=== PATIENT | female | born 1950 | race Caucasian/White ===

== ENCOUNTER 2020-07-17 16:07 | Outpatient (REF) | payer MEDICARE, SELFPAY ==
[2020-07-17 16:33] LABS: MANUAL DIFF FLAG NO
[2020-07-17 16:39] LABS: Basophils Absolute Auto 0.1 X10*3/uL (0.0-0.2); Basophils Percent Auto 0.9 % (0-2); Eosinophils Absolute Auto 0.7 X10*3/uL (0.0-0.4); Eosinophils Percent Auto 8.4 % (0-4); Hematocrit 39.7 % (37-47); Hemoglobin 12.8 g/dl (12.0-16.0); Imm Gran Abs Auto 0.04 X10*3/uL (0.00-0.03); Imm Gran Pct Auto 0.5 % (0.0-0.4); Lymphocytes Absolute Auto 2.3 X10*3/uL (1.2-4.9); Lymphocytes Percent Auto 28.7 % (20-40); Mean Corpuscular HGB Conc 32.2 g/dl (31.0-35.0); Mean Corpuscular Hemoglobin 29.3 pg (27.0-33.0); Mean Corpuscular Volume 90.8 fL (80-98); Mean Platelet Volume 9.5 fL (9.4-12.3); Monocytes Absolute Auto 0.6 X10*3/uL (0.1-1.2); Monocytes Percent Auto 7.2 % (2-11); Neutrophils Absolute Auto 4.3 X10*3/uL (2.0-8.3); Neutrophils Percent Auto 54.3 % (45-73); Platelet Count 292 X10*3/uL (160-400); Red Blood Count 4.37 X10*6/uL (4.20-5.50); Red Cell Distribution Width 13.1 % (11.0-16.0); White Blood Count 7.9 X10*3/uL (4.8-10.8)
[2020-07-17 16:56] LABS: Alanine Aminotransferase 26 U/L (0-31); Albumin Level 4.1 g/dL (3.5-5.0); Alkaline Phosphatase 67 U/L (39-117); Anion Gap 13 (12-20); Aspartate Amino Transferase 33 U/L (5-31); Bilirubin Total 0.3 mg/dL (0.0-1.0); Blood Urea Nitrogen 11 mg/dL (9-16); Calcium 9.1 mg/dL (8.4-10.2); Carbon Dioxide 27 mmol/L (22-29); Chloride 105 mmol/L (96-108); Estimated Glomerular Filt Rate > 60; Glucose Random 117 mg/dL (60-115); Potassium 4.7 mmol/L (3.3-5.1); Sodium 140 mmol/L (135-145); Total Protein 6.2 g/dL (6.5-8.0)
== END 2020-07-17 16:08 | disposition home or self-care (01) ==
LOC: HO.LAB 16:07
PROVIDERS: PCP Internal Medicine; Visit Provider Internal Medicine
DX: I10 Essential (primary) hypertension (principal); I25.10 Atherosclerotic heart disease of native coronary artery without angina pectoris; E78.00 Pure hypercholesterolemia, unspecified
CPT/HCPCS: 36415; 80053; 85025

== ENCOUNTER → 2020-10-17 13:04 | Outpatient (BNVA) | payer MEDICARE, SELFPAY | PROVIDERS: PCP Internal Medicine; Referring Provider Internal Medicine; Visit Provider Surgery | DX: K64.5 Perianal venous thrombosis (principal) | CPT/HCPCS: 46600; 99202 ==

== ENCOUNTER 2020-11-11 10:43 | Outpatient (REF) | payer MEDICARE, SELFPAY ==
[2020-11-11 11:58] LABS: Alanine Aminotransferase 27 U/L (0-31); Albumin Level 4.2 g/dL (3.5-5.0); Alkaline Phosphatase 67 U/L (39-117); Aspartate Amino Transferase 31 U/L (5-31); Bilirubin Direct 0.2 mg/dL (0.0-0.5); Bilirubin Total 0.6 mg/dL (0.0-1.0); Cholesterol 154 mg/dL; HDL Cholesterol 71 mg/dL; LDL Cholesterol Calculated 60 mg/dl; Magnesium 2.4 mg/dL (1.6-2.6); Total Protein 6.4 g/dL (6.5-8.0); Triglycerides 116 mg/dL
[2020-11-11 12:06] LABS: Thyroid Stimulating Hormone 0.26 uIU/mL (0.32-4.0)
== END 2020-11-11 10:44 | disposition home or self-care (01) ==
LOC: HO.LAB 10:43
PROVIDERS: PCP Internal Medicine; Visit Provider Internal Medicine Cardiovascular Disease
DX: E78.2 Mixed hyperlipidemia (principal); I10 Essential (primary) hypertension
CPT/HCPCS: 36415; 80061; 80076; 83735; 84443

== ENCOUNTER 2021-06-27 10:11 | Outpatient (REF) | payer MEDICARE, SELFPAY ==
[2021-06-27 10:33] LABS: MANUAL DIFF FLAG NO
[2021-06-27 11:50] LABS: Basophils Absolute Auto 0.1 X10*3/uL (0.0-0.2); Basophils Percent Auto 1.1 % (0-2); Eosinophils Absolute Auto 0.9 X10*3/uL (0.0-0.4); Eosinophils Percent Auto 13.7 % (0-4); Hematocrit 40.9 % (37.0-47.0); Hemoglobin 13.2 g/dl (12.0-16.0); Imm Gran Abs Auto 0.01 X10*3/uL (0.00-0.03); Imm Gran Pct Auto 0.2 % (0.0-0.4); Lymphocytes Absolute Auto 1.8 X10*3/uL (1.2-4.9); Mean Corpuscular HGB Conc 32.3 g/dl (31.0-35.0); Mean Corpuscular Hemoglobin 28.8 pg (27.0-33.0); Mean Corpuscular Volume 89.3 fL (80.0-98.0); Mean Platelet Volume 9.8 fL (9.4-12.3); Monocytes Absolute Auto 0.6 X10*3/uL (0.1-1.2); Monocytes Percent Auto 9.1 % (2-11); Neutrophils Absolute Auto 3.1 x10*3/uL (2.0-8.3); Neutrophils Percent Auto 47.9 % (45-73); Platelet Count 331 X10*3/uL (160-400); Red Blood Count 4.58 X10*6/uL (4.20-5.50); Red Cell Distribution Width 13.3 % (11.0-16.0); White Blood Count 6.6 X10*3/uL (4.8-10.8)
[2021-06-27 12:26] LABS: Estimated Average Glucose 108 mg/dL; Hemoglobin A1c % 5.4 %
[2021-06-27 12:33] LABS: Free T4 (Free Thyroxine) 0.85 ng/dL (0.71-1.85); Thyroid Stimulating Hormone 0.56 uIU/mL (0.32-4.0)
[2021-06-27 12:41] LABS: Alanine Aminotransferase 19 U/L (0-31); Albumin Level 3.9 g/dL (3.5-5.0); Alkaline Phosphatase 52 U/L (39-117); Anion Gap 15 (12-20); Aspartate Amino Transferase 35 U/L (5-31); Bilirubin Total 0.4 mg/dL (0.0-1.0); Blood Urea Nitrogen 14 mg/dL (9-16); Calcium 9.5 mg/dL (8.4-10.2); Carbon Dioxide 25 mmol/L (22-29); Chloride 105 mmol/L (96-108); Estimated Glomerular Filt Rate > 60; Glucose Random 102 mg/dL (60-115); Sodium 140 mmol/L (135-145); Total Protein 6.2 g/dL (6.5-8.0)
== END 2021-06-27 10:12 | disposition home or self-care (01) ==
LOC: HO.LAB 10:11
PROVIDERS: PCP Internal Medicine; Visit Provider Internal Medicine
DX: I25.10 Atherosclerotic heart disease of native coronary artery without angina pectoris (principal); I10 Essential (primary) hypertension; R73.03 Prediabetes; R94.6 Abnormal results of thyroid function studies
CPT/HCPCS: 36415; 80053; 83036; 84439; 84443; 85025

== ENCOUNTER 2022-04-30 13:12 | Outpatient (REF) | payer MEDICARE, SELFPAY ==
[2022-04-30 13:47] LABS: MANUAL DIFF FLAG NO
[2022-04-30 14:32] LABS: Basophils Percent Auto 0.2 % (0-2); Eosinophils Absolute Auto 0.2 X10*3/uL (0.0-0.4); Eosinophils Percent Auto 2.3 % (0-4); Hemoglobin 14.6 g/dl (12.0-16.0); Imm Gran Abs Auto 0.04 X10*3/uL (0.00-0.03); Imm Gran Pct Auto 0.5 % (0.0-0.4); Lymphocytes Absolute Auto 2.8 X10*3/uL (1.2-4.9); Lymphocytes Percent Auto 32.4 % (20-40); Mean Corpuscular HGB Conc 33.2 g/dl (31.0-35.0); Mean Corpuscular Hemoglobin 29.4 pg (27.0-33.0); Mean Corpuscular Volume 88.5 fL (80.0-98.0); Mean Platelet Volume 9.1 fL (9.4-12.3); Monocytes Absolute Auto 0.8 X10*3/uL (0.1-1.2); Monocytes Percent Auto 9.5 % (2-11); Neutrophils Absolute Auto 4.8 x10*3/uL (2.0-8.3); Neutrophils Percent Auto 55.1 % (45-73); Platelet Count 386 X10*3/uL (160-400); Red Blood Count 4.97 X10*6/uL (4.20-5.50); Red Cell Distribution Width 12.4 % (11.0-16.0); White Blood Count 8.7 X10*3/uL (4.8-10.8)
[2022-04-30 15:47] LABS: Alanine Aminotransferase 19 U/L (0-31); Alkaline Phosphatase 63 U/L (39-117); Anion Gap 11 (12-20); Aspartate Amino Transferase 25 U/L (5-31); Bilirubin Total 0.5 mg/dL (0.0-1.0); Blood Urea Nitrogen 19 mg/dL (9-16); Calcium 9.1 mg/dL (8.4-10.2); Carbon Dioxide 29 mmol/L (22-29); Chloride 97 mmol/L (96-108); Cholesterol 158 mg/dL; Estimated Glomerular Filt Rate > 60; Free T4 (Free Thyroxine) 1.16 ng/dL (0.71-1.85); Glucose Fasting 88 mg/dL (60-99); HDL Cholesterol 72 mg/dL; LDL Cholesterol Calculated 61 mg/dl; Potassium 5.2 mmol/L (3.3-5.1); Sodium 132 mmol/L (135-145); Thyroid Stimulating Hormone 0.42 uIU/mL (0.32-4.0); Total Protein 6.1 g/dL (6.5-8.0); Triglycerides 128 mg/dL
== END 2022-04-30 13:13 | disposition home or self-care (01) ==
LOC: HO.LAB 13:12
PROVIDERS: PCP Internal Medicine; Visit Provider Internal Medicine
DX: I25.10 Atherosclerotic heart disease of native coronary artery without angina pectoris (principal); E03.9 Hypothyroidism, unspecified; I10 Essential (primary) hypertension; E78.00 Pure hypercholesterolemia, unspecified
CPT/HCPCS: 36415; 80053; 80061; 84439; 84443; 85025

== ENCOUNTER → 2022-07-01 09:55 | Outpatient (BNVA) | payer MEDICARE, SELFPAY | PROVIDERS: PCP Internal Medicine; Visit Provider Surgery | DX: K40.91 Unilateral inguinal hernia, without obstruction or gangrene, recurrent (principal) | CPT/HCPCS: 99212 ==

== ENCOUNTER 2022-07-14 07:50 | Day surgery (SDC) | payer MEDICARE, SELFPAY ==
[2022-07-09 15:49] VITALS: BMI 27.0
--- NOTE | 2022-07-13 12:36 | HO.ANESPROP2 ---
Documented by User: Chelsea Cuellar NP 07/13/22 12:39 HPI - Anesthesia Eval Consult details Narrative: 72yo F for Left recurrent Hernia Repair Inguinal with possible mesh Stable at 08/2021 Cardiac visit with f/u in one year (CAD s/p stent 2010) [facility] Active Problems Active Problems: All Active Problems (Updated 07/09/22 @ 16:03 by April Mcleod, SHAAN) Recurrent left inguinal hernia (Acute) Thrombosed external hemorrhoid (Acute) Hypertension (Acute) Coronary disease (Acute) GERD (gastroesophageal reflux disease) (Acute) Past Medical History Medical History Back pain Coronary disease GERD (gastroesophageal reflux disease) Hypertension Leg pain, left Osteoarthritis Recurrent left inguinal hernia Thrombosed external hemorrhoid Surgical History Surgical History History of back surgery History of esophagogastroduodenoscopy (EGD) History of femoral hernia repair History of heart artery stent History of tonsillectomy Hx of bilateral inguinal hernia repair Hx of colonoscopy Hx of coronary angioplasty Hx of repair of rotator cuff Hx of sinus surgery Hx of umbilical hernia repair Social History Social History 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 If so, by whom?: No Are you DNR?: No Advance Directives: Yes Advance Directives Information Provided: Yes Advance Directives on File: Yes Advance Directives Date on File: 07/19/15 Recently lost weight without trying: Yes How much weight loss: 2-13 pounds Eating poorly because of decreased appetite: No Nutrition screen score: 3 Poor oral hygiene: No Meds Allergies Allergy/AdvReac Type Severity Reaction Status Date / Time acetaminophen [From Tylenol] Allergy Severe Rash Verified 07/14/22 08:47 clavulanic acid Allergy Severe HIVES Verified 07/14/22 08:47 [From Augmentin] environmental allergies Allergy Intermediate Hives Verified 07/14/22 08:47 Home Medications Medication Instructions Recorded Confirmed Last Taken Type amlodipine 5 mg tablet 5 mg PO DAILY 10/17/20 07/09/22 07/14/22 06:45 History aspirin 81 mg tablet,delayed 81 mg PO DAILY 10/17/20 07/09/22 07/11/22 History release atorvastatin 80 mg tablet 80 mg PO BEDTIME 10/17/20 07/09/22 Unknown History carvedilol 12.5 mg tablet 18.75 mg PO BID 10/17/20 07/09/22 07/14/22 06:45 History celecoxib 200 mg capsule 200 mg PO DAILY low back pain 10/17/20 07/09/22 07/11/22 History lisinopril 20 mg tablet 20 mg PO DAILY 10/17/20 07/09/22 Unknown History lorazepam 0.5 mg tablet 0.5 mg PO BEDTIME PRN Anxiety 10/17/20 07/09/22 Unknown History nitroglycerin 0.4 mg sublingual 0.4 mg sublingual Q5M PRN Chest 10/17/20 07/09/22 Unknown History tablet Pain omeprazole 20 mg capsule,delayed 20 mg PO BID 10/17/20 07/09/22 07/14/22 06:45 History release tizanidine 2 mg tablet 2 mg PO BEDTIME PRN Pain 10/17/20 07/09/22 Unknown History meloxicam 7.5 mg tablet 7.5 mg PO DAILY 07/01/22 07/09/22 07/11/22 History CoQ-10 07/09/22 Unknown History Vitamin C 07/09/22 07/09/22 Unknown History calcium 07/09/22 Unknown History gabapentin 300 mg capsule 1 cap PO TID 07/09/22 07/09/22 07/14/22 06:45 History levothyroxine 25 mcg tablet 1 tab PO DAILY 07/09/22 07/09/22 Unknown History multivitamin 1 tab PO DAILY 07/09/22 07/09/22 Unknown History nystatin 500,000 unit tablet 2 tab PO BID 07/09/22 07/09/22 Unknown History vitamin B complex 1 tab PO DAILY 07/09/22 07/09/22 Unknown History zinc sulfate 07/09/22 07/09/22 Unknown History Exam Exam Date and Time: July 13, 2022 1236 Height,Weight and Vital Signs: Height 5 ft 1 in Weight 64.864 kg Pertinent Lab Results Pertinent Lab Results: Laboratory Tests 04/30/22 04/30/22 13:46 13:46 WBC 8.7 Hgb 14.6 Hct 44.0 Plt Count 386 Sodium 132 L Potassium 5.2 H Chloride 97 Carbon Dioxide 29 BUN 19 H Creatinine 0.86 Assessment and Plan Assessment Anesthesia Assessment: Chart Reviewed Documented by User: Ashley Rondon MD 07/14/22 09:27 HPI - Anesthesia Eval Consult details Narrative: 72yo F for Left recurrent Hernia Repair Inguinal with possible mesh Stable at 08/2021 Cardiac visit with f/u in one year (CAD s/p stent 2010) state asymptomatic , [facility] reviewed. [facility] Past Medical History Medical History Back pain Coronary disease GERD (gastroesophageal reflux disease) Hypertension Leg pain, left Osteoarthritis Recurrent left inguinal hernia Thrombosed external hemorrhoid Family History Family history of problems with anesthesia: No Surgical History Surgical History History of back surgery History of esophagogastroduodenoscopy (EGD) History of femoral hernia repair History of heart artery stent History of tonsillectomy Hx of bilateral inguinal hernia repair Hx of colonoscopy Hx of coronary angioplasty Hx of repair of rotator cuff Hx of sinus surgery Hx of umbilical hernia repair History of Problems with Anesthesia: No Social History Social History 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 If so, by whom?: No Are you DNR?: No Advance Directives: Yes Advance Directives Information Provided: Yes Advance Directives on File: Yes Advance Directives Date on File: 07/19/15 Recently lost weight without trying: Yes How much weight loss: 2-13 pounds Eating poorly because of decreased appetite: No Nutrition screen score: 3 Poor oral hygiene: No Meds Allergies Allergy/AdvReac Type Severity Reaction Status Date / Time acetaminophen [From Tylenol] Allergy Severe Rash Verified 07/14/22 08:47 clavulanic acid Allergy Severe HIVES Verified 07/14/22 08:47 [From Augmentin] environmental allergies Allergy Intermediate Hives Verified 07/14/22 08:47 Home Medications Medication Instructions Recorded Confirmed Last Taken Type amlodipine 5 mg tablet 5 mg PO DAILY 10/17/20 07/09/22 07/14/22 06:45 History aspirin 81 mg tablet,delayed 81 mg PO DAILY 10/17/20 07/09/22 07/11/22 History release atorvastatin 80 mg tablet 80 mg PO BEDTIME 10/17/20 07/09/22 Unknown History carvedilol 12.5 mg tablet 18.75 mg PO BID 10/17/20 07/09/22 07/14/22 06:45 History celecoxib 200 mg capsule 200 mg PO DAILY low back pain 10/17/20 07/09/22 07/11/22 History lisinopril 20 mg tablet 20 mg PO DAILY 10/17/20 07/09/22 Unknown History lorazepam 0.5 mg tablet 0.5 mg PO BEDTIME PRN Anxiety 10/17/20 07/09/22 Unknown History nitroglycerin 0.4 mg sublingual 0.4 mg sublingual Q5M PRN Chest 10/17/20 07/09/22 Unknown History tablet Pain omeprazole 20 mg capsule,delayed 20 mg PO BID 10/17/20 07/09/22 07/14/22 06:45 History release tizanidine 2 mg tablet 2 mg PO BEDTIME PRN Pain 10/17/20 07/09/22 Unknown History meloxicam 7.5 mg tablet 7.5 mg PO DAILY 07/01/22 07/09/22 07/11/22 History CoQ-10 07/09/22 Unknown History Vitamin C 07/09/22 07/09/22 Unknown History calcium 07/09/22 Unknown History gabapentin 300 mg capsule 1 cap PO TID 02/07/09/22 07/14/22 06:45 History levothyroxine 25 mcg tablet 1 tab PO DAILY 07/09/22 07/09/22 Unknown History multivitamin 1 tab PO DAILY 07/09/22 07/09/22 Unknown History nystatin 500,000 unit tablet 2 tab PO BID 07/09/22 07/09/22 Unknown History vitamin B complex 1 tab PO DAILY 07/09/22 07/09/22 Unknown History zinc sulfate 07/09/22 07/09/22 Unknown History Exam Airway Mallampati Class: II TM Dist: >3cm Neck ROM: Full Heart: rrr Lungs: cta Assessment and Plan Assessment Anesthesia Assessment: Anesthesia Plan Discussed Final Anesthetic Review Family History of Problems with Anesthesia: No History of Problems with Anesthesia: No NPO: Yes ASA Class: III Final Preanesthetic Review: No Changes in Pt Med Stat, Meds/Allgs Chart Reviewed, Consent Obtained/Reviewed and Anes Risks/Benef Reviewed Patient Risk: Intermediate Procedure Risk: Intermediate Anesthetic Plan Anesthetic Plan: GA Disposition: Standard PACU
[2022-07-14] VITALS (7 sets, daily range): BP systolic 115–135; BP diastolic 54–62; PULSE 58–80; RESP 11–18; TEMP 36.6–37.2; O2SAT 97–100
--- NOTE | 2022-07-14 07:58 | ECG_ITS ---
Test Reason : cad Blood Pressure : / mmHG Vent. Rate : 078 BPM Atrial Rate : 078 BPM P-R Int : 180 ms QRS Dur : 086 ms QT Int : 382 ms P-R-T Axes : 056 -20 025 degrees QTc Int : 435 ms Normal sinus rhythm Possible Anterior infarct , age undetermined Abnormal ECG When compared with ECG of 19-JUL-2015 07:01, No significant change was found Referred By: Wayne Fuentes Electronically Signed By:DAHLIA ANAYA MD
[2022-07-14] MEDS: Lactated Ringers 1,000 ML 100 ML IVCONT (08:47)
[2022-07-14 09:11] LABS: Anion Gap 12 (12-20); Blood Urea Nitrogen 14 mg/dL (9-16); Calcium 8.5 mg/dL (8.4-10.2); Carbon Dioxide 22 mmol/L (22-29); Chloride 113 mmol/L (96-108); Creatinine Clr Calc Pharmacy 57.5; Estimated Glomerular Filt Rate > 60; Glucose Fasting 108 mg/dL (60-99); Potassium 4.2 mmol/L (3.3-5.1); Sodium 143 mmol/L (135-145)
--- NOTE | 2022-07-14 11:10 | MHC.SHP ---
Pre-Procedural Eval Section A Date of Service: 07/14/22 The patient is an INPATIENT: No Changes since office visit: No Cold of Flu in the past 2 weeks, No New Medical Problems, No Changes in Medication and No Patient answered all questions The History & Physical has been completed within 30 days and I have reviewed it.: Yes Section B Chief Complaint: Unilateral inguinal hernia, without obstruction or Allergies: Allergies Allergy/AdvReac Type Severity Reaction Status Date / Time acetaminophen [From Tylenol] Allergy Severe Rash Verified 07/14/22 08:47 clavulanic acid Allergy Severe HIVES Verified 07/14/22 08:47 [From Augmentin] environmental allergies Allergy Intermediate Hives Verified 07/14/22 08:47 Plan I have reviewed the history and physical and performed a pertinent physical examination on my patient. No changes have occurred unless specified. Time Spent With Patient Time: Total time managing care of this patient today ____ minutes.
--- NOTE | 2022-07-14 12:05 | W.PM.OPN ---
Operative Note Operative Note Date of Service: 07/14/22 Narrative: Preop diagnosis: Recurrent left inguinal hernia Postop diagnosis: Recurrent left inguinal hernia Procedure: Repair of a recurrent left inguinal hernia with mesh Surgeon: Andrea Norman MD assistant foreman: DUANE Barillas The patient is a 72-year-old female who had undergone a left hernia about 10 years ago. She had noticed a recurrence of the mass a few months ago. She came to the office and was scheduled therefore for repair of this recurrent left inguinal hernia if she understood the technique of repair with mesh. She was aware of the risks, benefits, and alternatives. She was brought to the operating room and placed supine under general anesthesia via laryngeal mask airway. The left groin was prepped and draped in the usual sterile fashion. A surgical time-out was done. The patient received cefazolin 2 g IV preoperatively. I infiltrated the planned line of incision with lidocaine 1%. I made an incision on the skin along the left inguinal crease using blade 15. This was carried down with electrocautery through the full-thickness of the skin subcutaneous fat until was able to expose the external oblique aponeurosis. I continued to gently dissect the external oblique aponeurosis. I was able to identify the external ring. I continued to expose this with blunt dissection and divided this with electrocautery. I opened the inguinal canal therefore. I applied hemostats on the divided edges of the aponeurosis. Since this was a recurrent hernia, the planes were not that defined so we had to do a lot of care for blunt dissection with a finger until was able to lift this aponeurosis off of the floor of the canal itself. The hernia was noted running through the internal ring. This was fat containing. I gently this from the rest of the internal oblique close able to completely reduce this through the ring. I reinforced the ring with him medium-sized plug. The plug was secured with Prolene 2 sutures to the shelving edge of the inguinal ligament laterally and the internal oblique superiorly and medially. I then used a flat Prolene mesh to reinforce the entire floor. I secured this with Prolene 2 sutures to the pubic ramus inferiorly, the shelving edge of the inguinal meant laterally, and the internal obliques superiorly and medially. We observed for hemostasis. Once hemostasis was confirmed, I copiously irrigated. I then reapposed the divided oblique aponeurosis with a running Dexon 2-0 stitch to overlie the mesh. The subcutaneous layer was reapposed with Dexon 3-0 interrupted sutures. Skin closure was achieved with Dexon 4-0 subcuticular running sutures. The incision was infiltrated with Marcaine 0.5% for postop analgesia. Dressings were applied. The procedure was completed. The patient tolerated procedure well. There were no immediate complications. Initial and final counts of sponges and instruments were correct. Estimated blood loss about 10 cc. The patient was extubated without difficulty and transferred to the recovery with stable vital signs.
[2022-07-14] MEDS: oxyCODONE HCl Immed Release 5 MG TABLET PO (12:44)
== END 2022-07-14 14:38 | disposition home or self-care (01) ==
PROVIDERS: Anesthesiology; PCP Internal Medicine; Visit Provider Surgery
PROC: (CPT 49520; principal; 2022-07-14 10:00)
DX: K40.91 Unilateral inguinal hernia, without obstruction or gangrene, recurrent (principal); I25.10 Atherosclerotic heart disease of native coronary artery without angina pectoris; Z98.61 Coronary angioplasty status; I10 Essential (primary) hypertension; K21.9 Gastro-esophageal reflux disease without esophagitis; Z79.82 Long term (current) use of aspirin; Z79.899 Other long term (current) drug therapy; Z88.8 Allergy status to other drugs, medicaments and biological substances
CPT/HCPCS: 49520; 36415; 80048; 93005; C1781; J0690; J1100; J1885; J2370; J2405; J2795; J3010

== ENCOUNTER → 2022-07-27 14:02 | Outpatient (BNVA) | payer MEDICARE, SELFPAY | PROVIDERS: PCP Internal Medicine; Visit Provider Surgery | DX: K40.91 Unilateral inguinal hernia, without obstruction or gangrene, recurrent (principal) | CPT/HCPCS: 99212 ==